=== PATIENT | male | born 1950 | race Asian ===

== ENCOUNTER 2022-07-16 20:04 | Emergency (ER) | payer MEDICARE ==
--- NOTE | 2022-07-16 20:13 | NUR ---
Patient to ER bed 08 to gown for evaluation. Side rails up. Report given to Wilma LANDEROS.
--- NOTE | 2022-07-16 20:14 | NUR ---
ARRIVED TO ER #8 WITH STEADY GAIT ACCOMPANIED VIA NEPHEW C/O PALPITATIONS. ONSET BEGAN 1 HOUR AGO. NEPHEW STATES THEY CHECKED HR VIA PULSE OX AND IT WAS 170'S. HE REPORTS C/O CHEST HEAVINESS AND PRESSURE WHEN HR INCREASES. HE ALSO C/O SOB. NEPHEW REPORTS HX OF SVT IN 2019. DENIES DIZZINESS, H/A, NEAR SYNCOPE. DRAPED IN GOWN AND PLACED ON SHRIMP TRAWLER CAPTAIN. CURRENTLY HR 108. DENIES BEING ON BLOOD THINNERS. REPORTS TAKING NORVASC 5MG DAILY AND LIPITOR 20 MG DAILY. REPORTS COMPLIANCE WITH MEDS. LYING SEMI FOWLERS ON STRETCHER RESTING COMFORTABLY. BED IN LOW POSITION, WHEELS LOCKED AND SR UP X 1 FOR SAFETY. WILL CONTINUE TO MONITOR. AWAITING MD AVENDANO.
[2022-07-16 20:15] VITALS: BP_SYST 161
[2022-07-16] MEDS ORDERED: ATENOLOL 50 MG TABLET (TENORMIN) PO ONE (20:30)
--- NOTE | 2022-07-16 20:36 | NUR ---
LAB AND XRAY AT BEDSIDE.
--- NOTE | 2022-07-16 20:45 | NUR ---
AMBULATORY W/ STEADY GAIT TO AND FROM BATHROOM. PLACED BACK ON ARMATURE REPAIRER. 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 MONITOR SHOWING SINUS TACH AT 110 BPM. HE DENIES CHEST PAIN/DYPSNEA. BP 132/93. BED IN LOW POSITION, WHEELS LOCKED AND SR UP X 1 FOR SAFETY. NEPHEW AT BEDSIDE. WILL CONTINUE TO MONITOR.
[2022-07-16 21:06] LABS: BASOPHILS % (AUTO) 0.7 % (0.0-2.0); EOSINOPHILS # (AUTO) 0.2 K/uL (0.0-0.4); EOSINOPHILS % (AUTO) 3.3 % (0.0-4.0); HEMATOCRIT 43.6 % (36-54); LYMPHOCYTES # (AUTO) 2.4 K/uL (1.0-5.5); LYMPHOCYTES % (AUTO) 47.1 % (20.5-51.5); MEAN CORPUSCULAR VOLUME 95 fL (79.0-98.0); MONOCYTES # (AUTO) 0.6 K/uL (0.0-1.0); MONOCYTES % (AUTO) 11.5 % (1.7-9.3); NEUTROPHILS # (AUTO) 1.9 K/uL (1.8-7.7); NEUTROPHILS % (AUTO) 37.4 % (40.0-70.0); PLATELET COUNT (AUTO) 150 K/uL (130-430); RED BLOOD CELL COUNT(AUTO) 4.59 MIL/uL (4.2-6.2); RED CELL DISTRIBUTION WIDTH 12.8 % (9.0-15.0); WHITE BLOOD COUNT (AUTO) 5.2 K/uL (4.8-10.8)
[2022-07-16 21:07] LABS: ANION GAP 6 (5-15); CALCIUM 9.5 mg/dL (8.4-11.0); CHLORIDE 103 mmol/L (98-107); GLUCOSE 107 mg/dL (70-99); POTASSIUM 4.4 mmol/L (3.5-5.1); SODIUM SERUM 141 mmol/L (136-145); UREA NITROGEN, BLOOD 26 mg/dL (8-21)
[2022-07-16 21:21] LABS: ALANINE AMINOTRANSFERASE 63 U/L (12-78); ALBUMIN 3.8 g/dL (3.4-4.8); ASPARTATE AMINOTRANSFERASE 34 U/L (10-37); THYROID STIMULATING HORMONE 2.78 uIu/mL (0.36-3.74); TOTAL BILIRUBIN 0.5 mg/dL (0.0-1.0)
--- NOTE | 2022-07-16 21:29 | NUR ---
AT BEDSIDE FOR RE-EVAL. PREPARING FOR D/C.
[2022-07-16] MEDS ORDERED: ATEN-41 PO (21:30)
--- NOTE | 2022-07-16 21:36 | NUR ---
Patient given written and verbal discharge instructions and verbalizes understanding. ER MD discussed with patient the results and treatment provided. Patient in stable condition. ID arm band removed. Rx of ATENOLOL given. Patient educated on pain management and to follow up with PMD. Pain Scale . Opportunity for questions provided and answered. Medication side effect fact sheet provided.
[2022-07-16 21:38] VITALS: BP_SYST 142
== END 2022-07-16 21:38 | disposition home or self-care (01) ==
LOC: SED 20:04
DX: R00.2 Palpitations (principal); I10 Essential (primary) hypertension; Z79.899 Other long term (current) drug therapy
CPT/HCPCS: 36415; 71045; 80053; 83880; 84439; 84443; 84484; 85025; 99285